=== PATIENT | female | born 1985 | race African-American/Black ===

== ENCOUNTER 2023-12-22 10:17 | Emergency (ER) | payer OTHER ==
[~2023-12-22] VITALS: Ht 154.9 cm; Wt 45.3 kg
[2023-12-22 10:31] VITALS: O2SAT 100
[2023-12-22 12:05] LABS: BASOPHILS % 0.6 % (0.0-2.0); EOSINOPHILS % 0.2 % (0.0-5.0); HEMATOCRIT. 37.8 % (36.0-48.0); LYMPHOCYTES % 13.1 % (20.0-50.0); MEAN CORPUSCULAR HEMOGLOBIN 31.2 pg (28.0-32.0); MEAN CORPUSCULAR HGB CONC 34.5 g/dL (31.0-37.0); MEAN CORPUSCULAR VOLUME 90.4 fL (81.0-99.0); MEAN PLATELET VOLUME 9.1 fl (7.4-10.4); MONOCYTES % 7.5 % (2.0-8.0); NEUTROPHILS % 78.6 % (40.0-76.0); PLATELET 306 x1000/uL (130-400); RED BLOOD CELL COUNT 4.18 mill/uL (4.2-5.4); RED CELL DISTRIBUTION WIDTH 13.4 % (11.6-14.6); WHITE BLOOD COUNT 8.6 x1000/uL (4.5-11.0)
[2023-12-22 12:13] LABS: ALANINE AMINOTRANSFERASE 14 IU/L (10-49); ALBUMIN 4.6 g/dL (3.2-4.8); ASPARTATE AMINOTRANSFERASE 15 IU/L (<34); BILIRUBIN TOTAL 0.3 mg/dL (0.1-1.0); CALCIUM 9.2 mg/dL (8.7-10.4); CARBON DIOXIDE 21 mEq/L (21-32); CHLORIDE 109 mEq/L (98-107); CREATININE 0.7 mg/dL (0.6-1.0); GLUCOSE 112 mg/dL (70-105); POTASSIUM 3.6 mEq/L (3.5-5.1); PROTEIN TOTAL 7.8 g/dL (6.0-8.3); SODIUM 139 mEq/L (136-145); UREA NITROGEN BLOOD 9 mg/dL (9-23)
[2023-12-22 12:18] VITALS: TEMP 98.2
[2023-12-22 13:25] LABS: B-HCG QUANTITATIVE 2 mIU/mL (<3)
[2023-12-22] MEDS ORDERED: ACETAMINOPHEN WITH CODEINE 300/30MG TABLET PO ONE (13:30)
[2023-12-22] MEDS ORDERED: TOPUD PO (13:31)
[2023-12-22 13:58] VITALS: BP 132/87; PULSE 67; RESP 19
== END 2023-12-22 14:13 | disposition home or self-care (01) ==
LOC: ER 10:17
DX: N93.8 Other specified abnormal uterine and vaginal bleeding (principal); D25.9 Leiomyoma of uterus, unspecified; T39.311A Poisoning by propionic acid derivatives, accidental (unintentional), initial encounter; Y92.9 Unspecified place or not applicable
CPT/HCPCS: 36415; 76830; 76856; 80053; 84702; 85025; 86850; 86900; 99284

== ENCOUNTER 2024-05-09 14:50 | Emergency (ER) | payer OTHER ==
[~2024-05-09] VITALS: Ht 154.9 cm; Wt 49.9 kg
[~2024-05-09 14:50] MED LIST: TOPUD PO
[2024-05-09 14:52] VITALS: PULSE 64; RESP 16
[2024-05-09 15:45] VITALS: BP 105/65; TEMP 96.4; O2SAT 99
[2024-05-09] MEDS ORDERED: P50 MT (16:58)
[2024-05-09] MEDS ORDERED: B50 MT (16:58)
[2024-05-09] MEDS ORDERED: HYDR453.4 TP (16:58)
== END 2024-05-09 22:46 | disposition home or self-care (01) ==
LOC: ER 14:50
DX: L30.9 Dermatitis, unspecified (principal)
CPT/HCPCS: 99283